=== PATIENT | female | born 1940 | race Hispanic/Latino ===

== ENCOUNTER 2018-02-13 11:22 | Day surgery (SDC) | payer MEDICARE ==
[~2018-02-13 11:22] MED LIST: IOPIDINE ONE; MYDRIACYL ONE; NEOFRIN ONE
[2018-02-13] MEDS ORDERED: MYDRIACYL OD ONE (11:50)
[2018-02-13] MEDS ORDERED: NEOFRIN OD ONE (11:50)
[2018-02-13] MEDS ORDERED: IOPIDINE OD ONE (11:50)
[2018-02-13 15:06] VITALS: BP 136/75
== END 2018-02-13 12:56 | disposition home or self-care (01) ==
LOC: OR 11:22
PROVIDERS: ATTEND Specialist
DX: H26.491 Other secondary cataract, right eye (principal)

== ENCOUNTER 2018-02-20 11:21 | Day surgery (SDC) | payer MEDICARE ==
[2018-02-20] MEDS ORDERED: IOPIDINE OS ONE (11:38)
[2018-02-20] MEDS ORDERED: NEOFRIN OS ONE (11:38)
[2018-02-20] MEDS ORDERED: MYDRIACYL OS ONE (11:38)
[2018-02-20 15:09] VITALS: BP 135/63
== END 2018-02-20 11:22 | disposition home or self-care (01) ==
LOC: OR 11:21
PROVIDERS: ATTEND Specialist
DX: H26.492 Other secondary cataract, left eye (principal)